=== PATIENT | male | born 2000 | race Caucasian/White ===

== ENCOUNTER 2021-01-03 16:52 | Emergency (ER) | payer SELFPAY ==
[~2021-01-03] VITALS: Ht 162.5 cm; Wt 80.0 kg
[2021-01-03] MEDS ORDERED: fentaNYL INJECTION 100 MCG/2 ML AMP ONE (17:00)
--- NOTE | 2021-01-03 17:00 | ED Upper Extremity ---
General Stated Complaint: FELL,RT ARM PAIN Source: patient Exam Limitations: no limitations History of Present Illness Date Seen by Provider: Jan 03, 2021 Time Seen by Provider: 16:58 Initial Comments 20-year-old male presents with right mid upper arm injury. 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 That he came off awkward and try to catch himself with his right arm. He complains of pain in his right mid upper arm. He has no pain in the elbow or below the elbow. He does not complain of pain in the shoulder. He denies any other injuries. Allergies and Home Medications Allergies Coded Allergies: No Known Drug Allergies (Unverified , 01/03/21) Patient Home Medication List Home Medication List Reviewed: Yes Review of Systems Constitutional: No chills, No fever EENTM: see HPI Respiratory: no symptoms reported Cardiovascular: no symptoms reported Gastrointestinal: no symptoms reported Genitourinary: no symptoms reported Musculoskeletal: see HPI Skin: see HPI Psychiatric/Neurological: No Symptoms Reported Past [id number] Hx Past Med/Social Hx: Reviewed Nursing Past Med/Soc Hx Physical Exam Vital Signs Vital Signs - First Documented 01/03/21 16:55 Temp 36.4 Pulse 100 Resp 20 B/P (MAP) 143/104 (117) Pulse Ox 98 O2 Delivery Room Air Capillary Refill : Height, Weight, BMI Height: '" Weight: lbs. oz. kg; BMI Method: General Appearance: mild distress Neck: supple, normal inspection Cardiovascular: normal peripheral pulses, regular rate, rhythm Respiratory: chest non-tender, lungs clear, normal breath sounds Gastrointestinal: non tender Shoulder: pain (Pain mid right upper humerus, no obvious deformity) Elbow/Forearm: no evidence of injury, normal ROM Wrist: Yes no evidence of injury, Yes normal ROM Hand: normal ROM, Right, Left Neurologic/Tendon: normal motor functions, normal tendon functions Neurologic/Psychiatric: multi skilled operator II-XII nml as tested, alert, normal mood/affect, oriented x 3 Skin: normal color, warm/dry Progress/Results/Core Measures Results/Orders My Orders Orders - AUGUSTO NEWTON DO Humerus 2 View Right (01/03/21 17:00) Fentanyl Injection (Sublimaze Injection (01/03/21 17:02) Fentanyl Injection (Sublimaze Injection (01/03/21 17:00) Ondansetron Oral Dissolve Tab (Zofran (01/03/21 17:11) Ondansetron Oral Dissolve Tab (Zofran (01/03/21 17:20) Vital Signs/I&O 01/03/21 16:55 Temp 36.4 Pulse 100 Resp 20 B/P (MAP) 143/104 (117) Pulse Ox 98 O2 Delivery Room Air Diagnostic Imaging Diagonstic Imaging: Xray Plain Films/CT/US/NM/MRI: other (humerus) Comments [facility], [place] NAME: HUBER BLANCHARD [employer] REC#: [id number] PT STATUS: REG ER : 2000 PHYSICIAN: AUGUSTO NEWTON DO ADMIT DATE: 01/03/21/ER FS Draft Date of Exam:01/03/21 HUMERUS 2 VIEW RIGHT INDICATION: Right arm injury COMPARISON: None FINDINGS: 3 views of the right humerus demonstrate transverse mid to distal diaphysis fracture with slight displacement. There is slight angulation. No foreign body seen. IMPRESSION: Mid to distal humerus fracture Dictated on workstation # [id number] Dict: 01/03/21 1735 Trans: 01/03/21 1743 [facility] [id number] Interpreted by: HANSA ARIAS Electronically signed by: Departure Impression Primary Impression: Fracture, humerus closed, shaft Qualified Codes: S42.321A - Displaced transverse fracture of shaft of humerus, right arm, initial encounter for closed fracture Disposition: 01 HOME, SELF-CARE Condition: Stable Departure-Patient Inst. Referrals: KATE DEE MD Patient Instructions: Upper Arm Fracture Add. Discharge Instructions: Call orthopedic office in the morning to arrange for appointment for follow-up in 2 to 3 days Ice to affected area Keep arm elevated Scripts Hydrocodone/Acetaminophen (Hydrocodone-Acetamin 5-325 mg) 1 Each Tablet 1 TAB PO Q8H PRN for PAIN-MODERATE (5-7), #12 TAB Prov: AUGUSTO NEWTON DO 01/03/21 Copy Copies To 1: KATE DEE MD, TREVOR L DO Jan 03, 2021 17:00
[2021-01-03] MEDS ORDERED: fentaNYL INJECTION 100 MCG/2 ML AMP IM STA (17:02)
[2021-01-03] MEDS ORDERED: ONDANSETRON 4 MG (ZOFRAN) ORAL DISSOLVE TAB ONE (17:11)
[2021-01-03] MEDS ORDERED: ONDANSETRON 4 MG (ZOFRAN) ORAL DISSOLVE TAB PO STA (17:20)
--- NOTE | 2021-01-03 17:44 | Diagnostic Imaging Report ---
INDICATION: Right arm injury COMPARISON: None FINDINGS: 3 views of the right humerus demonstrate transverse mid to distal diaphysis fracture with slight displacement. There is slight angulation. No foreign body seen. IMPRESSION: Mid to distal humerus fracture Dictated by: Dictated on workstation # [id number]
[2021-01-03] MEDS ORDERED: ACHD5005 PO (17:54)
[2021-01-03 18:00] VITALS: BP 140/95
== END 2021-01-03 18:00 | disposition home or self-care (01) ==
LOC: ER FS 16:53
DX: S42.321A Displaced transverse fracture of shaft of humerus, right arm, initial encounter for closed fracture (principal); X50.1XXA Overexertion from prolonged static or awkward postures, initial encounter
CPT/HCPCS: 73060; 99283; A4565